=== PATIENT | female | born 1980 | race Two or more races ===

== ENCOUNTER 2021-03-30 19:09 | Emergency (ER) | payer SELFPAY ==
[2021-03-30] MEDS ORDERED: Ketorolac 15 MG/ML SDV IVPUSH ONE (19:55)
--- NOTE | 2021-03-30 20:00 | EDM.PDOC ---
ED HPI GENERAL MEDICAL PROBLEM - General Chief Complaint: Chest Pain Stated Complaint: CHEST PAIN Time Seen by Provider: 03/30/21 19:40 Source of Information: Reports: Patient History Limitations: Reports: Language Barrier (family independence case manager service used. id# [id number]) - History of Present Illness INITIAL COMMENTS - FREE TEXT/NARRATIVE: Patient is a 40-year-old female with history of anemia that was recently diagnosed. She was started on iron supplementation. Patient is presenting with chief complaint of chest pain. Chest pain onset was approximately 3:00 this afternoon while [facility] was at [facility]. Patient fell pain in the middle of her chest and felt slightly dizzy like she was going to pass out. Patient states symptoms have improved since then despite no intervention. She denies any shortness of breath, nausea, diaphoresis. Pain seems to be slightly worse with deep breathing. Patient has no prior history of similar symptoms. Patient otherwise denies any recent hospitalizations, surgeries, past history of DVT/PE. Patient is not on any hormonal contraceptives. Denies any lower extremity/calf pain or swelling. Mid-Sternal Chest Pain Score (Numeric/FACES): 7 - Related Data Allergies Allergy/AdvReac Type Severity Reaction Status Date / Time No Known Allergies Allergy Verified 03/30/21 19:25 Home Meds: Home Meds Ethambutol HCl 800 mg PO DAILY 03/30/21 [History] Isoniazid 300 mg PO DAILY 03/30/21 [History] Pyrazinamide 1,500 mg PO DAILY 03/30/21 [History] Pyridoxine HCl [Vitamin B-6] 25 mg PO DAILY 03/30/21 [History] Rifampin [Rifadin] 600 mg PO DAILY 03/30/21 [History] Past Medical History - Infectious Disease History Infectious Disease History: Reports: TB Other Infectious Disease History: in eye - Past Surgical History Female Surgical History: Reports: Section Social & Family History - Tobacco Use Tobacco Use Status *Q: Never Tobacco User - Recreational Drug Use Recreational Drug Use: No ED ROS GENERAL - Review of Systems Review Of Systems: See Below Free Text/Narrative/Comment: In addition to that documented in the HPI above, the additional ROS was obtained: Constitutional: Denies fevers or chills Eyes: Denies vision changes ENMT: Denies sore throat CV: Per HPI Resp: Denies SOB GI: Denies vomiting or diarrhea : Denies painful urination MSK: Denies recent trauma Skin: Denies new rashes Neuro: Denies new numbness or tingling or weakness Endocrine: Denies unexpected weight loss Heme: Denies bleeding disorders ED EXAM, GENERAL - Physical Exam Exam: See Below Free Text/Narrative:: I have reviewed the triage vital signs Const: Well nourished, well developed, appears stated age Eyes: Pupils Equal and reactive to light bilaterally, no conjunctival injection HENT: No signs of trauma or swelling, Neck supple without meningismus CV: Regular Rate Rhythm, Warm, well-perfused extremities RESP: Unlabored respiratory effort GI: soft, non-tender, non-distended, no masses MSK: No gross deformities appreciated Skin: Warm, dry. No rashes Neuro: Alert, auto transmission mechanic II-XII grossly intact. Sensation and motor function of extremities grossly intact. Psych: Appropriate mood and affect. #1 Interpretation EKG Date: 03/30/21 Time: 19:41 Rhythm: NSR Rate (Beats/Min): 71 Acme: Normal P-Wave: Present QRS: Normal ST-T: Normal QT: Normal Comparison: NA - No Prior EKG EKG Interpretation Comments: Normal Course - Vital Signs Last Recorded V/S: Last Vital Signs Temp 36.4 C 03/30/21 19:26 Pulse 65 03/30/21 23:02 Resp 23 H 03/30/21 19:26 BP 144/72 H 03/30/21 23:02 Pulse Ox 98 03/30/21 23:02 - Orders/Labs/Meds Orders: Active Orders 24 hr Category Date Time Status Chest PE [Ang Chest] [CT] Stat Exams 03/30/21 21:23 Taken Heparin Sodium/D5W [Heparin 25,000 Units in D5W 500 ML] Med 03/30/21 21:15 Active 25,000 units in 500 ml IV TITRATE Nitroglycerin/D5W [Nitroglycerin 25 MG/D5W 250 ML] Med 03/30/21 21:45 Active 25 mg in 250 ml IV TITRATE Sodium Chloride 0.9% [Normal Saline] 100 ml Med 03/30/21 22:00 Active IV ASDIRECTED Medication Orders Heparin Sodium/Dextrose (Heparin 25,000 Units In D5w 500 Ml) 25,000 units in 500 mls @ 18.855 mls/hr IV TITRATE JUAN; Protocol Last Admin: 03/30/21 21:24 Dose: 12 units/kg/hr, 18.855 mls/hr Documented by: CRISTHIAN Cosigned by: ALYSON Nitroglycerin/Dextrose (Nitroglycerin 25 Mg/D5w 250 Ml) 25 mg in 250 mls @ 3 mls/hr IV TITRATE JUAN; Protocol Last Admin: 03/30/21 21:59 Dose: 5 mcg/min, 3 mls/hr Documented by: CRISTHIAN Sodium Chloride (Normal Saline) 100 mls @ 60 mls/min IV ASDIRECTED JUAN Last Admin: 03/30/21 21:59 Dose: 60 mls/min Documented by: MARQUIS Labs: Laboratory Tests 03/30/21 03/30/21 03/30/21 Range/Units 20:05 20:05 21:09 WBC 5.62 (3.98-10.04) K/mm3 RBC 4.12 (3.98-5.22) M/mm3 Hgb 7.2 L* (11.2-15.7) gm/dl Hct 27.2 L (34.1-44.9) % MCV 66.0 L D (79.4-94.8) fl MCH 17.5 L (25.6-32.2) pg MCHC 26.5 L (32.2-35.5) g/dl RDW Std Deviation 49.5 H (36.4-46.3) fL Plt Count 383 H (182-369) K/mm3 MPV 9.0 L (9.4-12.3) fl Neut % (Auto) 52.3 (34.0-71.1) % Lymph % (Auto) 39.7 (19.3-51.7) % [facility] [place] [facility] % (Auto) 6.4 (4.7-12.5) % Eos % (Auto) 0.9 (0.7-5.8) Baso % (Auto) 0.5 (0.1-1.2) % Neut # (Auto) 2.94 (1.56-6.13) K/mm3 Lymph # (Auto) 2.23 (1.18-3.74) K/mm3 [facility] # (Auto) 0.36 (0.24-0.36) K/mm3 Eos # (Auto) 0.05 (0.04-0.36) K/mm3 Baso # (Auto) 0.03 (0.01-0.08) K/mm3 Manual Slide Review Abnormal smear Sodium 138 (136-145) mEq/L Potassium 3.3 L (3.5-5.1) mEq/L Chloride 104 (98-107) mEq/L Carbon Dioxide 23 (21-32) mEq/L Anion Gap 14.3 (5-15) BUN 11 (7-18) mg/dL Creatinine 0.7 (0.55-1.02) mg/dL Est Cr Clr Drug Dosing TNP Estimated GFR (MDRD) > 60 (>60) mL/min BUN/Creatinine Ratio 15.7 (14-18) Glucose 95 (70-99) mg/dL Calcium 8.4 L (8.5-10.1) mg/dL Total Bilirubin 0.2 (0.2-1.0) mg/dL AST 11 L (15-37) U/L ALT 20 (14-59) U/L Alkaline Phosphatase 41 L (46-116) U/L Troponin I 2.656 H* (0.00-0.056) ng/mL Total Protein 7.6 (6.4-8.2) g/dl Albumin 3.7 (3.4-5.0) g/dl Globulin 3.9 gm/dL Albumin/Globulin Ratio 1.0 (1-2) SARS-CoV-2 RNA (KHUSHBU) Negative (NEGATIVE) Meds: Medications Generic Name Dose Route Start Last Admin Trade Name Freq PRN Reason Stop Dose Admin Heparin Sodium/Dextrose 25,000 units in 500 mls @ 18.855 mls/hr 03/30/21 21:15 03/30/21 21:24 Heparin 25,000 Units In D5w 500 Ml IV 12 units/kg/hr TITRATE JUAN 18.855 mls/hr Administration Protocol 12 UNITS/KG/HR Nitroglycerin/Dextrose 25 mg in 250 mls @ 3 mls/hr 03/30/21 21:45 03/30/21 21:59 Nitroglycerin 25 Mg/D5w 250 Ml IV 5 mcg/min TITRATE JUAN 3 mls/hr Administration Protocol 5 MCG/MIN Sodium Chloride 100 mls @ 60 mls/min 03/30/21 22:00 03/30/21 21:59 Normal Saline IV 60 mls/min ASDIRECTED JUAN Administration Discontinued Medications Generic Name Dose Route Start Last Admin Trade Name Mirian PRN Reason Stop Dose Admin Aspirin 324 mg 03/30/21 21:09 03/30/21 21:26 Aspirin 81 Mg Tab.Chew PO 03/30/21 21:10 324 mg ONETIME ONE Administration Heparin Sodium (Porcine) 4,700 units 03/30/21 21:09 Heparin Sodium 5,000 Units/Ml Vial IVPUSH 03/30/21 21:10 .BOLUS ONE Heparin Sodium (Porcine) 4,000 units 03/30/21 21:26 03/30/21 21:28 Heparin Sodium 5,000 Units/Ml Vial IVPUSH 03/30/21 21:27 4,000 units ONETIME ONE Administration Iopamidol 100 ml 03/30/21 21:58 03/30/21 21:59 Iopamidol 755 Mg/Ml 100 Ml Bottle IVPUSH 03/30/21 21:59 100 ml ONETIME ONE Administration Ketorolac Tromethamine 15 mg 03/30/21 19:55 03/30/21 20:07 Ketorolac 15 Mg/Ml Sdv IVPUSH 03/30/21 19:56 15 mg ONETIME ONE Administration Sodium Chloride 10 ml 03/30/21 21:58 03/30/21 22:00 Sodium Chloride 0.9% 10 Ml Sdv FLUSH 03/30/21 21:59 10 ml ONETIME ONE Administration - Re-Assessments/Exams Free Text/Narrative Re-Assessment/Exam: 03/30/21 21:44 Troponin elevated at 2.7. Heparin drip initiated. 325 aspirin given. [facility] in [place] was called and I spoke with Dr. Hallman the hospitalist as well as Dr. Bo of cardiology regarding this patient. Dr. Hallman agreed to accept patient for inpatient admission with diagnosis of NSTEMI. They agreed with management utilizing heparin drip and did request a nitro glycerin infusion as well. Departure - Departure Time of Disposition: 23:00 Disposition: DC/Tfer to Acute Hospital 02 Reason for Transfer *Q: Primary PCI Indicated Clinical Impression: NSTEMI (non-ST elevated myocardial infarction) Referrals: Mellisa Bradley [facility] [Primary Care Provider] - Forms: ED Department Discharge Sepsis Event Note (ED) - Evaluation Sepsis Screening Result: No Definite Risk - Focused Exam Vital Signs: Vital Signs Temp Pulse Resp BP Pulse Ox 03/30/21 23:02 65 144/72 H 98 03/30/21 19:26 36.4 C 75 23 H 138/69 100 - My Orders Last 24 Hours: My Active Orders 03/30/21 21:15 Heparin Sodium/D5W [Heparin 25,000 Units in D5W 500 ML] 25,000 units in 500 ml IV TITRATE 03/30/21 21:23 Chest PE [Ang Chest] [CT] Stat 03/30/21 21:45 Nitroglycerin/D5W [Nitroglycerin 25 MG/D5W 250 ML] 25 mg in 250 ml IV TITRATE 03/30/21 22:00 Sodium Chloride 0.9% [Normal Saline] 100 ml IV ASDIRECTED - Assessment/Plan Last 24 Hours: My Active Orders 03/30/21 21:15 Heparin Sodium/D5W [Heparin 25,000 Units in D5W 500 ML] 25,000 units in 500 ml IV TITRATE 03/30/21 21:23 Chest PE [Ang Chest] [CT] Stat 03/30/21 21:45 Nitroglycerin/D5W [Nitroglycerin 25 MG/D5W 250 ML] 25 mg in 250 ml IV TITRATE 03/30/21 22:00 Sodium Chloride 0.9% [Normal Saline] 100 ml IV ASDIRECTED Assessment:: Patient is 40-year-old female presenting to emergency room with a complaint of chest pain. Remain hemodynamically stable on the emergency department. Differential diagnosis considered for this patient include ACS, pulmonary embolism, aortic dissection, costochondritis. Based on patient's evaluation, laboratory studies and EKG performed. Laboratory studies largely unremarkable except for significant troponin elevation at 2.7. EKG did not show any ischemic changes. D-dimer was not ordered as patient was PERC negative. However, with significant troponin elevation and minimal risk factors a CT angiogram was performed which did not show any evidence of pulmonary embolism. Ultimately, patient was initiated on heparin and nitroglycerin drips. Patient given aspirin. She will require higher level of care and cardiac catheterization tomorrow. [facility] patient for admission. Patient transported via ground ambulance. All questions were addressed and answered to this patient.
--- NOTE | 2021-03-30 20:57 | CR ---
Chest: 2 views of the chest were obtained. Comparison: No prior chest imaging is available. Heart size and mediastinum are within normal limits. Lungs appear to be clear with no acute parenchymal change. Bony structures appear within normal limits for the patient's age. Impression: 1. Nothing acute is seen on 2-view chest x-ray. Diagnostic code #1
[2021-03-30] MEDS ORDERED: Heparin Sodium 5,000 Units/ML Vial IVPUSH ONE ×2 (21:09→21:26)
[2021-03-30] MEDS ORDERED: Aspirin 81 MG Tab.Chew PO ONE (21:09)
[2021-03-30] MEDS ORDERED: Heparin Sodium/D5W 25,000 UNITS/500 ML BAG IV SCH (21:15)
[2021-03-30] MEDS ORDERED: Nitroglycerin/D5W 25 MG/250 ML BOTTLE IV SCH (21:45)
[2021-03-30] MEDS ORDERED: Iopamidol 755 Mg/ML 100 ML Bottle IVPUSH ONE (21:58)
[2021-03-30] MEDS ORDERED: Sodium Chloride 0.9% 10 ML SDV FLUSH ONE (21:58)
[2021-03-30] MEDS ORDERED: Sodium Chloride 0.9% 100 ML IV SCH (22:00)
[2021-03-30 23:03] VITALS: BP 144/72; PULSE 65
--- NOTE | 2021-03-31 06:14 | CT ---
CT chest Technique: Multiple axial sections were obtained through the chest. Intravenous contrast was utilized. Study has been performed as a pulmonary angiogram protocol. Comparison: Prior chest x-ray performed earlier on the same day (8:09 PM). Findings: Pulmonary arteries are well opacified. No filling defects are seen to indicate pulmonary embolism. Thoracic aorta shows no aneurysm. Mediastinum shows no adenopathy. No axillary adenopathy is seen. No pericardial thickening is seen. Left kidney shows an upper pole cyst measuring about 1.8 cm. Other visualized portions of the abdomen appear within normal limits. Lung window settings were reviewed. No acute parenchymal finding is seen. Bone window settings were reviewed. No acute osseous abnormality is appreciated. Impression: 1. Small cyst within the left kidney. 2. No findings of pulmonary embolism. 3. Nothing acute is appreciated on CT study of the chest. Diagnostic code #2 I agree with preliminary report from [facility], finalized on 03/30/21, 11:48 PM CDT, code 1
== END 2021-03-31 02:37 ==
LOC: JD.ED 19:09
DX: I21.4 Non-ST elevation (NSTEMI) myocardial infarction (principal); Z20.822 Contact with and (suspected) exposure to COVID-19
CPT/HCPCS: 36415; 71046; 71275; 80053; 84484; 85025; 87635; 93005; 96365; 96366; 96367; 96375; 99285; A9270; J1644; J1885; J3490; Q9967; U0002